=== PATIENT | male | born 1995 | race Caucasian/White ===

== ENCOUNTER 2017-07-16 15:09 | Emergency (ER) | payer OTHER ==
[2017-07-16 15:20] VITALS: BP 146/78
--- NOTE | 2017-07-16 15:44 | ED ---
Palpitations / Dysrhythmia - HPI Summary HPI Summary: 22 yr old male with the complaint of Palpitations, worse with exertion, and when exerts himself he feels his arms get blue with poor capillary refill. He presently feels fine without symptoms. He is worried he has some obstruction of his blood flow to arms. He denies dizziness, cp, SOB. He has no other complaints. - History of Current Complaint Chief Complaint: UCGeneralIllness Time Seen by Provider: 07/16/17 15:14 - Allergy/Home Medications Allergies/Adverse Reactions: Allergies Allergy/AdvReac Type Severity Reaction Status Date / Time No Known Allergies Allergy Verified 07/16/17 15:20 PMH/Surg Hx/FS Hx/Imm Hx Previously Healthy: Yes - Surgical History Surgery Procedure, Year, and Place: hernia repair Infectious Disease History: No Infectious Disease History: Denies: History Other Infectious Disease, Traveled Outside the [place] in Last 30 Days - Family History Known Family History: Positive: None - Social History Alcohol Use: None Substance Use Type: Reports: None Smoking Status (MU): Never Smoked Tobacco Review of Systems Constitutional: Negative Positive: Palpitations All Other Systems Reviewed And Are Negative: Yes Physical Exam Triage Information Reviewed: Yes Vital Signs On Initial Exam: Initial Vitals Temp Pulse Resp BP Pulse Ox 98 F 98 16 146/78 100 07/16/17 15:09 07/16/17 15:09 07/16/17 15:09 07/16/17 15:09 07/16/17 15:09 Vital Signs Reviewed: Yes Appearance: Positive: Well-Appearing, No Pain Distress Skin: Positive: Warm, Skin Color Reflects Adequate Perfusion. Negative: Cyanosis @ Head/Face: Positive: Normal Head/Face Inspection Eyes: Positive: EOMI ENT: Positive: Normal ENT inspection Neck: Positive: Supple, Nontender Respiratory/Lung Sounds: Positive: Clear to Auscultation, Breath Sounds Present Cardiovascular: Positive: RRR, Pulses are Symmetrical in both Upper and Lower Extremities. Negative: Murmur Abdomen Description: Positive: Nontender Musculoskeletal: Positive: Strength/ROM Intact Neurological: Positive: Sensory/Motor Intact, Alert, Oriented to Person Place, Time, CN Intact II-III Psychiatric: Positive: Normal - [place] Coma Scale Best Eye Response: 4 - Spontaneous Best Motor Response: 6 - Obeys Commands Best Verbal Response: 5 - Oriented Diagnostics - Vital Signs Vital Signs Temp Pulse Resp BP Pulse Ox 07/16/17 15:09 98 F 98 16 146/78 100 - Laboratory Lab Statement: Any lab studies that have been ordered have been reviewed, and results considered in the medical decision making process. 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 He refuses transport to ER for further eval. Signed out AMA. - Diagnoses Provider Diagnoses: Palpitations, Hypertension Discharge - Discharge Plan Condition: Good Disposition: AGAINST MEDICAL ADVICE Referrals: Kev Duran MD [Primary Care Provider] -
== END 2017-07-16 15:39 | disposition left against medical advice (07) ==
LOC: UCCORT 15:09
DX: R00.2 Palpitations (principal); I10 Essential (primary) hypertension
CPT/HCPCS: 93005; 99212; G0463